=== PATIENT | female | born 1955 | race Caucasian/White ===

== ENCOUNTER 2018-04-02 09:38 | Outpatient (CLI) | payer BC | END 2018-04-02 09:39 | disposition home or self-care (01) | LOC: BICMAMMO 09:38 | PROVIDERS: ATTEND Family Medicine | DX: Z12.31 Encounter for screening mammogram for malignant neoplasm of breast (principal); Z80.3 Family history of malignant neoplasm of breast | CPT/HCPCS: 77063; 77067 ==

== ENCOUNTER 2019-04-05 09:29 | Outpatient (CLI) | payer MEDICARE, BC ==
--- NOTE | 2019-04-05 10:33 | MMO ---
Bilateral MAMMO Bilat Screen DDI+EBENEZER. CLINICAL HISTORY: Patient is 63 years old and is seen for screening. The patient has no personal history of cancer. VIEWS: The views performed were: bilateral craniocaudal with tomosynthesis and bilateral mediolateral oblique with tomosynthesis. FILMS COMPARED: The present examination has been compared to prior imaging studies performed at [facility] on 03/22/2015, 03/28/2016, 03/28/2017 and 04/02/2018. MAMMOGRAM FINDINGS: There are scattered fibroglandular densities. There is a stable area of architectural distortion seen in the upper-inner region of the left breast. There are no suspicious masses, suspicious calcifications, or new areas of architectural distortion. IMPRESSION: THERE IS NO MAMMOGRAPHIC EVIDENCE OF MALIGNANCY. A ROUTINE FOLLOW-UP MAMMOGRAM IN 1 YEAR IS RECOMMENDED. THE RESULTS OF THIS EXAM WERE SENT TO THE PATIENT. ACR BI-RADS Category 2 - Benign finding MAMMOGRAPHY NOTE: 1. A negative mammogram report should not delay a biopsy if a dominant of clinically suspicious mass is present. 2. Approximately 10% to 15% of breast cancers are not detected by mammography. 3. Adenosis and dense breasts may obscure an underlying neoplasm. Reported by: MERCEDES GLEASON MD Electonically Signed: [id number]
== END 2019-04-05 09:30 | disposition home or self-care (01) ==
LOC: BICMAMMO 09:29
PROVIDERS: ATTEND Family Medicine
DX: Z12.31 Encounter for screening mammogram for malignant neoplasm of breast (principal)
CPT/HCPCS: 77063; 77067

== ENCOUNTER 2019-11-16 05:56 | Outpatient (CLI) | payer MEDICARE, BC ==
[2019-11-16 13:17] LABS: Anion Gap 12 mmol/L (10-20); BUN (Urea Nitrogen) 21 mg/dL (9.8-20.1); Calc. Creatinine Clearance 0 mL/min (70-130); Calcium 9.3 mg/dL (7.8-10.44); Carbon Dioxide 25 mmol/L (23-31); Chloride 104 mmol/L (98-107); Estimated GFR-MDRD 88; Glucose 88 mg/dL (80-115); Potassium 3.8 mmol/L (3.5-5.1); Sodium 137 mmol/L (136-145)
--- NOTE | 2019-11-18 08:25 | EKG ---
Test Reason : Blood Pressure : / mmHG Vent. Rate : 077 BPM Atrial Rate : 077 BPM P-R Int : 156 ms QRS Dur : 086 ms QT Int : 384 ms P-R-T Axes : 012 061 048 degrees QTc Int : 434 ms Normal sinus rhythm Normal ECG No previous ECGs available Confirmed by DR. Shaneka MARCELO ([id number]) on 11/18/2019 8:25:01 AM Referred By: BRIAN Confirmed By:DR. Shaneka MARCELO
== END 2019-11-16 05:57 | disposition home or self-care (01) ==
LOC: LABBT 05:56
PROVIDERS: ATTEND Obstetrics & Gynecology
DX: Z01.818 Encounter for other preprocedural examination (principal); N81.2 Incomplete uterovaginal prolapse; N39.3 Stress incontinence (female) (male)
CPT/HCPCS: 80048; 93005; 93010

== ENCOUNTER 2019-11-22 05:54 | Day surgery (SDC) | payer MEDICARE, BC ==
[2019-11-16 11:52] VITALS: BMI 26.2
[2019-11-16 12:56] LABS: Hemoglobin 13.6 g/dL (12.0-16.0); Mean Corpuscular HGB CONC 33.5 g/dL (32.0-36.0); Mean Corpuscular Volume 92.6 fL (78.0-98.0); Mean Platelet Volume 7.9 fL (7.4-10.4); Platelet Count 329 thou/uL (130-400); RBC Distribution Width 11.7 % (11.5-14.5); Red Blood Cell (RBC) Count 4.38 mill/uL (4.20-5.40); White Blood Cell (WBC) Count 8.5 thou/uL (4.8-10.8)
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
[2019-11-22] MEDS ORDERED: Levofloxacin 500 mg/D5W 100 ml Premix Bag ONE (06:12)
[2019-11-22] MEDS ORDERED: Famotidine/PF 20 mg/2ml Vial ONE (06:12)
[2019-11-22] MEDS ORDERED: Clindamycin/D5W 900 mg/50 ml Premix Bag ONE (06:12)
[2019-11-22] MEDS ORDERED: Gabapentin 300 MG CAP ONE (06:14)
[2019-11-22] MEDS ORDERED: Fentanyl 100 MCG/2 ML VIAL ONE ×2 (06:37→10:52)
[2019-11-22] MEDS ORDERED: HYDROmorphone 0.5 MG/0.5 ML SYRINGE ONE (06:37)
[2019-11-22] MEDS ORDERED: Bupivacaine 0.25% HCL 30 ML VIAL ONE ×2 (07:02→07:03)
[2019-11-22] MEDS ORDERED: Lidocaine 1% w/Epinephrine 1:100K 20 ML VIAL ONE ×2 (07:02→07:03)
[2019-11-22] MEDS ORDERED: Midazolam HCl 2 mg/2 ml Vial ONE (07:12)
[2019-11-22] MEDS ORDERED: Promethazine HCl 25 MG/ML VIAL SLOW IVP PRN (09:11)
[2019-11-22] MEDS ORDERED: HYDROmorphone 2 MG/ML VIAL SLOW IVP PRN (09:11)
[2019-11-22] MEDS ORDERED: Ondansetron HCl/PF 4 MG/2 ML Vial IVP PRN (09:11)
[2019-11-22] MEDS ORDERED: Meperidine HCl/PF 25 MG/ML VIAL SLOW IVP PRN (09:11)
[2019-11-22] MEDS ORDERED: Promethazine HCl 25 MG/ML VIAL IM PRN (10:24)
[2019-11-22] MEDS ORDERED: Ondansetron PF 4 MG/2 ML Vial IVP PRN (10:24)
[2019-11-22] MEDS ORDERED: Simethicone Chewable 80 MG TAB PO PRN (10:24)
[2019-11-22] MEDS ORDERED: Acetaminophen 325 MG TAB PO PRN (10:24)
[2019-11-22] MEDS ORDERED: diphenhydrAMINE 25 MG CAP PO PRN (10:24)
[2019-11-22] MEDS ORDERED: Zolpidem Tartrate 5 MG TAB PO PRN (10:24)
[2019-11-22] MEDS ORDERED: Labetalol HCl 100 MG/20 ML VIAL SLOW IVP PRN (10:27)
[2019-11-22] MEDS ORDERED: Promethazine HCl 25 MG/ML VIAL ONE (10:55)
[2019-11-22] MEDS ORDERED: Glycopyrrolate 0.2 MG/ML 5 ML SYRINGE ONE (11:40)
[2019-11-22] MEDS ORDERED: PHENYLEPHRINE-NS 100 MCG/ML 10 ML SYRINGE ONE (11:40)
[2019-11-22] MEDS ORDERED: PROPOFOL 200 MG/20 ML VIAL ONE (11:40)
[2019-11-22] MEDS ORDERED: Rocuronium Bromide 10 MG/ML (10ML VIAL) ONE (11:40)
[2019-11-22] MEDS ORDERED: Dexamethasone 20 MG/5 ML VIAL ONE (11:40)
[2019-11-22] MEDS ORDERED: Ondansetron PF 4 MG/2 ML Vial ONE (11:40)
[2019-11-22] MEDS ORDERED: EPHEDRINE 25 MG/5 ML SYRINGE ONE (11:40)
[2019-11-22] MEDS ORDERED: Lidocaine 1% PF 5 ML VIAL ONE (11:40)
[2019-11-22] MEDS: Morphine 4 MG/ML VIAL SLOW IVP PRN ×2 (13:27→20:41)
--- NOTE | 2019-11-22 13:28 | OP ---
DATE OF PROCEDURE: 11/22/2019 PREOPERATIVE DIAGNOSES: 1. A 64-year-old white female with symptomatic grade 3 cystocele, grade 2 uterine prolapse, and grade 3 rectocele. 2. Genuine stress incontinence. POSTOPERATIVE DIAGNOSES: 1. A 64-year-old white female with symptomatic grade 3 cystocele, grade 2 uterine prolapse, and grade 3 rectocele. 2. Genuine stress incontinence. PROCEDURES PERFORMED: 1. Robotic total laparoscopic hysterectomy with bilateral salpingo-oophorectomy. 2. Anterior and posterior repair. 3. Advantage Fit TVT with cystoscopy. FRUIT AND VEGETABLE CLASSER SURGEON: Ashleigh Bauer PA-C ESTIMATED BLOOD LOSS: 50 mL. COMPLICATIONS: None. COUNTS: Correct x2. ANTIBIOTICS: Levaquin and clindamycin per SCIP protocol. FINDINGS: 1. Uterus postmenopausal with a normal postmenopausal appearing adnexal structures in both ovaries and tubes. 2. Post TVT cystoscopy procedure of the bladder showed normal mucosa, no lesions, no evidence of any foreign body or perforations. Bilateral efflux of urine seen in each ureteral orifice. COUNTS: Correct x2. DISPOSITION: Recovery room, stable. DESCRIPTION OF PROCEDURE: The patient previously received informed consent in regard to surgery. She was taken back to the operating room, where she received a general endotracheal anesthetic agent without complications. She was placed in dorsal lithotomy position with use of Christo stirrups, prepped and draped in usual sterile fashion. At this time, a side-arm speculum was placed in the vagina after Mortensen catheter had been placed. The cervix was grasped with single-tooth tenaculum. The uterus sounded to 7 cm. A size 6 cm BECCA uterine manipulator with a 3.5 cm cervical cup was placed in usual fashion. Tenaculum and speculum were then removed. Attention was then turned to the abdomen. Perspective trocar sites were infiltrated with 0.5% Marcaine with epinephrine. An umbilical incision was made in the skin and the Veress needle was entered into the peritoneal cavity. Abdominal pressures were less than 5 mmHg and abdomen was insufflated with the patient's pressure of 15, approximately 4 L of carbon dioxide gas. A 12-mm trocar was then placed. Laparoscope was introduced through trocar sleeve confirming proper entry. Then, additional bilateral lower quadrant 8 mm trocars were placed under laparoscopic guidance along with the right upper quadrant 11 mm printer floor covering assistant port. The patient was placed in Trendelenburg position and the robot was docked in usual fashion. I then broke scrub. I proceeded to carry out the procedure from the operative console while my assistants remained at the bedside. The uterus was elevated from the pelvis by my printer floor covering assistant, bilateral ureters were visualized, and the pelvic sidewall was noted. The left fallopian tube was grasped by my printer floor covering assistant. The left IP ligament was coagulated and transected with bipolar fenestrated cautery along with monopolar scissors. Serial coagulation of the broad ligament hugging close to the uterus was carried out to the left round ligament was reached. It was coagulated and transected. The anterior lip of the broad ligament was entered. The vesicouterine peritoneum was incised, dropping the bladder atraumatically past the cervical vaginal margin. The left uterine vessels were skeletonized and they were coagulated in the internal cervical os region. This was then carried down in likewise fashion on the patient's right side. Again, the right fallopian tube was grasped by my printer floor covering assistant. The right IP ligament was coagulated and transected and serial coagulation and transection to the right round ligament being reached, again being coagulated and transected and then completion of the dissection of the vesicouterine peritoneum and bladder dropping this past the cervical vaginal margin. Again, the uterine vessels on the right side were skeletonized and coagulated in the internal cervical os region with bipolar fenestrated cautery. The bladder was distended to confirm that it had been adequately dissected past the anticipated anterior colpotomy incision and this was confirmed. The anterior colpotomy was then created with monopolar scissors starting from 12 to 3 and 12 to 9 o'clock position. The vessels at the 3 o'clock and 9 o'clock position were coagulated inside the cuff line. Posterior colpotomy was completed. The specimen was delivered into the vaginal vault. Any areas of bleeding on the vaginal cuff were made hemostatic with bipolar fenestrated cautery. The sidewalls were noted to be hemostatic. I then placed 0 Vicryl angle stitches at the previous uterosacral ligaments on the vaginal cuff under direct laparoscopic visualization and robotic plication. These were then brought to the vaginal cuff and tagged. The robot was then undocked. Trocar site sleeves were removed. A deep stitch of 0 Vicryl was placed in the umbilical fascial defect and the other trocar sites were closed with 4-0 Monocryl with Dermabond securing hemostasis. The patient was then prepped for vaginal portion of the surgery. Hydrodissection behind the symphysis pubis was carried out with approximately 90 mL of sterile saline with a spinal needle. We then placed a weighted speculum in the vagina. The edges of the anterior vaginal mucosal cuff line were grasped by 2 Allis clamps and stay sutures were noted to have been previously tagged. Anterior vaginal mucosa was infiltrated with 1% lidocaine with epinephrine for hydrodissection. I then made an incision in the anterior vaginal mucosa approximately 2.5 cm from the urethral meatus. The edges of the vaginal cuffs were grasped with Allis clamps and then I dissected the cystocele defect on both sides reducing the cystocele defect in its entirety. I then plicated the endopelvic fascia anteriorly over the cystocele defect with interrupted [id number] stitches of 2-0 Vicryl suture, reducing the cystocele. I then palpated the mid urethra by feeling of the UV angle of the Mortensen bulb position. The anterior vaginal mucosa overlying the mid urethra was grasped superiorly and inferiorly. This area was infiltrated with 1% lidocaine with epinephrine. A vertical midline incision was made over the mucosa and the mid urethra and the edges were then grasped with Allis clamps. I dissected submucosally the vaginal mucosa on each side just between the bifurcation, inferior pubic ramus, and symphysis pubis bone. Once the tracts have been developed, I then got the Advantage Fit trocar with the mesh loaded. The legs were brought down in the same level as the axilla bilaterally. The marking for the midline of the urethra and 2 cm lateral just behind the symphysis pubis and each side of the mid urethra iraheta were made. I then placed the trocar in the left side through the previously dissected tunnel and passed this retropubically into the designated marking site. At the end of the trocar, plastic bumper was grasped by my printer floor covering assistant and the trocar was backed out. The mesh was kept oriented properly and then I placed it on the patient's right side and the bladder had been deviated with a Mortensen guide contralateral during each placement. Once each trocar was passed uneventfully, then I got this a 70-degree cystoscope. The 70-degree cystoscope was introduced to the bladder. The bladder was distended in each direction of the trocar and mesh placements were reviewed and there was no evidence of any mesh placement or trocar placement through the bladder. There were no lesions of bladder noted. Bilateral ureteral orifices were visualized and efflux of urine was visualized. We then removed the cystoscope and then I had the mesh pulled out by my assistants to the proper tension by using a Joseph scissor at this mid urethra and then the plastic sleeve was removed from the mesh line and these were trimmed at the skin level. I then closed the anterior vaginal mucosa with interrupted [id number] stitches of 2-0 Vicryl suture closing the sling procedure and also the anterior repair. Then, weighted speculum was placed in the posterior vagina. The rest of the vaginal cuff was closed with 0 Vicryl suture in a horizontal fashion and good hemostasis was confirmed. Then, the posterior repair was carried out. Two Allis clamps were placed at 4 and 8 o'clock position in the vaginal introitus. The posterior vaginal mucosa was infiltrated with 1% lidocaine with epinephrine. We made an incision in the posterior vaginal mucosa of the cuff line. The edges of the mucosa were grasped with Allis clamps for counter traction and then I dissected the rectocele hernia both sharply and bluntly. Once this had been adequately dissected, I then took 2-0 Vicryl suture, most proximal to the cuff line and grasped the endopelvic fascial tissue and plicated this in the midline with interrupted [id number] stitches. This repaired the rectocele defect. Hemostasis was confirmed. The posterior vaginal mucosa was then closed in an interrupted [id number] sutures of 0 Vicryl securing hemostasis. Once this had been completed, then the moistened Kerlix was packed in the vagina. The patient was awakened from anesthesia and transferred to recovery room in stable condition. Job ID: [id number]
[2019-11-22] MEDS: HYDROcodone/Acetaminophen 10/325 mg Tablet PO PRN ×2 (17:19→23:23)
[2019-11-23] MEDS: HYDROcodone/Acetaminophen 10/325 mg Tablet PO PRN ×3 (04:46→17:33)
[2019-11-23 05:44] LABS: Hemoglobin 11.2 g/dL (12.0-16.0); Mean Corpuscular HGB CONC 31.9 g/dL (32.0-36.0); Mean Corpuscular Hemoglobin 30.2 pg (27.0-31.0); Mean Corpuscular Volume 94.5 fL (78.0-98.0); Mean Platelet Volume 7.8 fL (7.4-10.4); Platelet Count 276 thou/uL (130-400); RBC Distribution Width 12.1 % (11.5-14.5); Red Blood Cell (RBC) Count 3.72 mill/uL (4.20-5.40); White Blood Cell (WBC) Count 13.9 thou/uL (4.8-10.8)
[2019-11-23 06:04] LABS: Anion Gap 9 mmol/L (10-20); BUN (Urea Nitrogen) 9 mg/dL (9.8-20.1); Calc. Creatinine Clearance 80 mL/min (70-130); Calcium 8.3 mg/dL (7.8-10.44); Carbon Dioxide 25 mmol/L (23-31); Chloride 104 mmol/L (98-107); Estimated GFR-MDRD Greater than 90; Glucose 97 mg/dL (80-115); Potassium 3.9 mmol/L (3.5-5.1); Sodium 134 mmol/L (136-145)
--- NOTE | 2019-11-23 08:01 | PDOC.EVN ---
Event Note - Event Note Event Note: Feels sore. Some mild nausea. Taking clears well. O:AFVSS HCT 35 U/O 4325 ml. K+ 3.9 ABD: soft/non distended. Trochar sites C/D/I. A/P: POST op day 1 from robotic tlh/bso with A&P and tvt. Begin voiding trials.
[2019-11-23] MEDS ORDERED: UBIDECARENONE 10 MG PO SCH (09:00)
[2019-11-23] MEDS ORDERED: Ubidecarenone 50 MG CAP PO SCH (09:00)
[2019-11-23] MEDS: Amlodipine 5 MG TAB PO SCH (09:53)
[2019-11-23] MEDS: Loratadine 10 MG TAB PO SCH (09:53)
[2019-11-23] MEDS: Furosemide 40 MG TAB PO SCH (09:53)
[2019-11-23] MEDS: Fish Oil 1,000 MG CAP PO SCH (09:54)
[2019-11-23] MEDS: Fluticasone Propionate Nasal Spray 16 gm Bottle NASAL SCH (09:55)
[2019-11-23] MEDS: Metamucil PACK PO SCH (10:07)
[2019-11-23] MEDS ORDERED: Potassium Chloride 8 MEQ TAB PO SCH (12:00)
[2019-11-24 06:20] LABS: Hemoglobin 11.8 g/dL (12.0-16.0); Mean Corpuscular HGB CONC 31.9 g/dL (32.0-36.0); Mean Corpuscular Hemoglobin 30.1 pg (27.0-31.0); Mean Corpuscular Volume 94.2 fL (78.0-98.0); Mean Platelet Volume 7.8 fL (7.4-10.4); Platelet Count 288 thou/uL (130-400); RBC Distribution Width 12.1 % (11.5-14.5); Red Blood Cell (RBC) Count 3.92 mill/uL (4.20-5.40); White Blood Cell (WBC) Count 12.3 thou/uL (4.8-10.8)
--- NOTE | 2019-11-24 07:48 | PDOC.EVN ---
Event Note - Event Note Event Note: Ambulating, voiding, tolerating diet. O:AFVSS T 98.9 118/57 9 77. HCT 36.9 ABD soft /non distended. PVR's less than 150 ml the past few voids.... A/P post op day 2 from robotic tlh/bso with A&P and advantage fit tvt. Voiding trials going well. D/c home . F/u 2 and 6 weeks.
[2019-11-24 08:21] VITALS: BP 115/61; TEMP 99.3
[2019-11-24] MEDS: Amlodipine 5 MG TAB PO SCH (08:42)
[2019-11-24] MEDS: Furosemide 40 MG TAB PO SCH (08:42)
[2019-11-24] MEDS: Fluticasone Propionate Nasal Spray 16 gm Bottle NASAL SCH (08:43)
[2019-11-24] MEDS: Loratadine 10 MG TAB PO SCH (08:43)
[2019-11-24] MEDS: Fish Oil 1,000 MG CAP PO SCH (08:43)
[2019-11-24] MEDS: Metamucil PACK PO SCH (08:45)
--- NOTE | 2019-11-24 12:14 | DIS ---
DATE OF ADMISSION: 11/22/2019 DATE OF DISCHARGE: 11/24/2019 DIAGNOSES: 1. Symptomatic uterine prolapse and cystocele and rectocele. 2. Female stress incontinence. PROCEDURES PERFORMED: Robotic total laparoscopic hysterectomy with bilateral salpingo-oophorectomy, anterior repair with the Advantage Fit TVT and cystoscopy. SUMMARY OF HOSPITAL COURSE: Ms. Harvey is a 64-year-old white female with symptomatic pelvic organ prolapse. She underwent surgical repair on 11/22/2019. Postoperatively, the patient has done well. Her postoperative hematocrit was 36.9%. She began voiding trials in the day of postop day #1. She had initially elevated postvoid residuals, but consistently had decreasing volumes of the PVR. She has had consistently less than 150 mL postvoid residuals with past several voids. Her vital signs remained stable. She is ambulating and tolerating regular diet. She will be discharged home with followup in 2 and 6 weeks. She should continue her maintenance medications for chronic hypertension and prescription for Kinzers 5 mg q.6 hours p.r.n. pain and [id number] ibuprofen as directed. Job ID: [id number]
== END 2019-11-24 10:25 | disposition home or self-care (01) ==
LOC: SDC 05:54 → 3SE 13:17 → SDC 11-24 10:25
PROVIDERS: ATTEND Obstetrics & Gynecology
PROC: 0UT94ZZ Resection of Uterus, Percutaneous Endoscopic Approach (ICD-10-PCS; principal; 2019-11-22)
PROC: 0UT24ZZ Resection of Bilateral Ovaries, Percutaneous Endoscopic Approach (ICD-10-PCS; 2019-11-22)
PROC: 0UT74ZZ Resection of Bilateral Fallopian Tubes, Percutaneous Endoscopic Approach (ICD-10-PCS; 2019-11-22)
PROC: 0JQC0ZZ Repair Pelvic Region Subcutaneous Tissue and Fascia, Open Approach (ICD-10-PCS; 2019-11-22)
PROC: 0JQC0ZZ Repair Pelvic Region Subcutaneous Tissue and Fascia, Open Approach (ICD-10-PCS; 2019-11-22)
PROC: 0TSD0ZZ Reposition Urethra, Open Approach (ICD-10-PCS; 2019-11-22)
DX: N81.2 Incomplete uterovaginal prolapse (principal); N39.3 Stress incontinence (female) (male); N88.8 Other specified noninflammatory disorders of cervix uteri; I10 Essential (primary) hypertension; E78.5 Hyperlipidemia, unspecified; J45.909 Unspecified asthma, uncomplicated; M81.0 Age-related osteoporosis without current pathological fracture; E55.9 Vitamin D deficiency, unspecified; Z79.82 Long term (current) use of aspirin; Z79.899 Other long term (current) drug therapy; Z88.0 Allergy status to penicillin; Z88.2 Allergy status to sulfonamides; Z88.6 Allergy status to analgesic agent
CPT/HCPCS: 36415; 80048; 85027; 86850; 86900; 86901; 88307; J1100; J1170; J1956; J2001; J2250; J2270; J2405; J2550; J2704; J3010; J3490; S0020; S0028

== ENCOUNTER 2020-08-03 10:45 | Outpatient (CLI) | payer MEDICARE, BC ==
--- NOTE | 2020-08-03 11:10 | MMO ---
Bilateral MAMMO Bilat Screen [facility]DI[facility]. CLINICAL HISTORY: Patient is 65 years old and is seen for screening. The patient has the following family history of breast cancer: maternal aunt. The patient has no personal history of cancer. VIEWS: The views performed were: bilateral craniocaudal with tomosynthesis and bilateral mediolateral oblique with tomosynthesis. FILMS COMPARED: The present examination has been compared to prior imaging studies performed at [facility] on 03/28/2016, 03/28/2017, 04/02/2018 and 04/05/2019. This study has been interpreted with the assistance of computer-aided detection. MAMMOGRAM FINDINGS: The breasts are almost entirely fat. There are stable benign appearing calcifications seen in both breasts. There are also vascular calcifications. There are no suspicious masses, suspicious calcifications, or new areas of architectural distortion. IMPRESSION: THERE IS NO MAMMOGRAPHIC EVIDENCE OF MALIGNANCY. A ROUTINE FOLLOW-UP MAMMOGRAM IN 1 YEAR IS RECOMMENDED. THE RESULTS OF THIS EXAM WERE SENT TO THE PATIENT. ACR BI-RADS Category 2 - Benign finding MAMMOGRAPHY NOTE: 1. A negative mammogram report should not delay a biopsy if a dominant of clinically suspicious mass is present. 2. Approximately 10% to 15% of breast cancers are not detected by mammography. 3. Adenosis and dense breasts may obscure an underlying neoplasm. Reported by: ENRICO MI MD Electonically Signed: [id number]
== END 2020-08-03 10:46 | disposition home or self-care (01) ==
LOC: BICMAMMO 10:45
PROVIDERS: ATTEND Family Medicine
DX: Z12.31 Encounter for screening mammogram for malignant neoplasm of breast (principal); Z80.3 Family history of malignant neoplasm of breast
CPT/HCPCS: 77063; 77067

== ENCOUNTER 2021-01-04 14:19 | Outpatient (CLI) | payer MEDICARE, BC | END 2021-01-04 14:20 | disposition home or self-care (01) | LOC: BICMAMMO 14:19 | PROVIDERS: ATTEND Internal Medicine Rheumatology | DX: M81.0 Age-related osteoporosis without current pathological fracture (principal); M47.816 Spondylosis without myelopathy or radiculopathy, lumbar region; M47.814 Spondylosis without myelopathy or radiculopathy, thoracic region; M41.9 Scoliosis, unspecified | CPT/HCPCS: 72072; 72110; 77080 ==

== ENCOUNTER 2021-08-06 10:43 | Outpatient (CLI) | payer MEDICARE, BC | END 2021-08-06 10:44 | disposition home or self-care (01) | LOC: BICMAMMO 10:43 | PROVIDERS: ATTEND Obstetrics & Gynecology | DX: Z12.31 Encounter for screening mammogram for malignant neoplasm of breast (principal); M54.2 Cervicalgia; M47.812 Spondylosis without myelopathy or radiculopathy, cervical region; Z80.3 Family history of malignant neoplasm of breast | CPT/HCPCS: 72040; 77063; 77067 ==

== ENCOUNTER 2022-03-26 14:19 | Outpatient (CLI) | payer MEDICARE, BC | END 2022-03-26 14:20 | disposition home or self-care (01) | LOC: RAD 14:19 | PROVIDERS: ATTEND Internal Medicine Critical Care Medicine | DX: R06.00 Dyspnea, unspecified (principal) | CPT/HCPCS: 71046 ==

== ENCOUNTER 2022-08-15 10:37 | Outpatient (CLI) | payer MEDICARE, BC | END 2022-08-15 10:38 | disposition home or self-care (01) | LOC: BICMAMMO 10:37 | PROVIDERS: ATTEND Family Medicine | DX: Z12.31 Encounter for screening mammogram for malignant neoplasm of breast (principal); R92.1 Mammographic calcification found on diagnostic imaging of breast; Z80.3 Family history of malignant neoplasm of breast | CPT/HCPCS: 77063; 77067 ==

== ENCOUNTER 2023-08-20 09:45 | Outpatient (CLI) | payer MEDICARE, BC | END 2023-08-20 09:46 | disposition home or self-care (01) | LOC: BICMAMMO 09:45 | PROVIDERS: ATTEND Obstetrics & Gynecology | DX: Z12.31 Encounter for screening mammogram for malignant neoplasm of breast (principal); Z80.3 Family history of malignant neoplasm of breast | CPT/HCPCS: 77063; 77067 ==

== ENCOUNTER 2024-08-23 10:23 | Outpatient (CLI) | payer MEDICARE | END 2024-08-23 10:24 | disposition home or self-care (01) | LOC: BICMAMMO 10:23 | PROVIDERS: ATTEND Obstetrics & Gynecology | DX: Z12.31 Encounter for screening mammogram for malignant neoplasm of breast (principal); Z80.3 Family history of malignant neoplasm of breast | CPT/HCPCS: 77063; 77067 ==

== ENCOUNTER 2025-04-15 10:25 | Outpatient (CLI) | payer MEDICARE | END 2025-04-15 10:26 | disposition home or self-care (01) | LOC: BICMAMMO 10:25 | PROVIDERS: ATTEND Internal Medicine Rheumatology | DX: M81.0 Age-related osteoporosis without current pathological fracture (principal) | CPT/HCPCS: 77080 ==

== ENCOUNTER 2025-08-25 09:20 | Outpatient (CLI) | payer MEDICARE | END 2025-08-25 09:21 | disposition home or self-care (01) | LOC: BICMAMMO 09:20 | PROVIDERS: ATTEND Obstetrics & Gynecology | DX: Z12.31 Encounter for screening mammogram for malignant neoplasm of breast (principal); Z80.3 Family history of malignant neoplasm of breast | CPT/HCPCS: 77063; 77067 ==